=== PATIENT | female | born 1950 | race Hispanic/Latino ===

== ENCOUNTER 2025-01-02 08:38 | Day surgery (SDC) | payer MEDICARE ==
[2025-01-01 09:02] LABS: BASOPHILS # (AUTO) 0.03 K/uL (0.00-0.20); BASOPHILS % (AUTO) 0.8 % (0.0-5.0); EOSINOPHILS # (AUTO) 0.14 K/uL (0.00-0.70); EOSINOPHILS % (AUTO) 3.8 % (0.0-8.0); HEMATOCRIT 39.8 % (36-48); IMMATURE GRANULOCYTE ABSOLUTE 0.01 K/uL (0-1); LYMPHOCYTES # (AUTO) 1.1 K/uL (1.0-4.8); LYMPHOCYTES % (AUTO) 30.1 % (21.0-51.0); MEAN CORPUSCULAR HEMOGLOBIN 32.4 pg (27.0-33.0); MEAN CORPUSCULAR HGB CONC 36.2 g/dL (32.0-36.0); MEAN CORPUSCULAR VOLUME 89.4 fL (79-99); MONOCYTES # (AUTO) 0.2 K/uL (0.1-1.0); MONOCYTES % (AUTO) 5.8 % (3.0-13.0); NEUTROPHILS # (AUTO) 2.2 K/uL (1.8-7.7); NEUTROPHILS % (AUTO) 59.2 % (40.0-77.0); PLATELET COUNT (AUTO) 149 K/uL (130-400); RED BLOOD CELL COUNT(AUTO) 4.45 MIL/uL (4.00-5.50); RED CELL DISTRIBUTION WIDTH 12.7 % (11.0-15.5); WHITE BLOOD COUNT (AUTO) 3.7 K/uL (4.8-10.8)
[2025-01-01 09:09] LABS: CREATININE 0.7 mg/dL (0.5-1.0); POTASSIUM 3.8 mmol/L (3.5-5.1)
[2025-01-01 09:30] LABS: PROTHROMBIN TIME 10.6 SEC (9.6-11.6)
[2025-01-01 09:31] LABS: PARTIAL THROMBOPLASTIN TIME 27.2 SEC (26.3-35.5)
[2025-01-01 09:34] VITALS: BP 111/74; PULSE 56; RESP 16; TEMP 98.1
--- NOTE | 2025-01-01 12:04 | EKG ---
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
[2025-01-02] VITALS (18 sets, daily range): BP systolic 104–142; BP diastolic 65–81; PULSE 59–88; RESP 13–18; TEMP 97.3–97.4
[~2025-01-02 08:38] MED LIST: ALEN70TA80 PO
[2025-01-02] MEDS ORDERED: BETA1TAB18 PO (09:44)
[2025-01-02] MEDS: VANCOMYCIN 1G/250ML KIT 250 ML IV ONE (09:44)
[2025-01-02] MEDS ORDERED: Collagen (09:44)
[2025-01-02] MEDS ORDERED: MECO10005 PO (09:44)
[2025-01-02] MEDS ORDERED: tumeric PO (09:44)
[2025-01-02] MEDS ORDERED: METR45GE10 TP (09:44)
[2025-01-02] MEDS ORDERED: CALC-1209 PO (09:44)
[2025-01-02] MEDS ORDERED: proPOFol 10 MG/ML 20ML VIAL IV ONE (10:22)
[2025-01-02] MEDS ORDERED: rocuRONium bROMide 10MG/1ML 5ML VL ONE (10:22)
[2025-01-02] MEDS ORDERED: MIDAZOLAM HCL 1 MG/ML 2ML VIAL ONE (10:22)
[2025-01-02] MEDS ORDERED: FENTanyl CITRate PF 50 MCG/1 ML 2ML VIAL ONE (10:23)
[2025-01-02] MEDS: LACTATED RINGERS 1000ML 1,000 ML IV ONE (10:50)
[2025-01-02] MEDS: SCOPOLAMINE HYDROBROMIDE 1 EACH ADH..PATCH TD ONE (10:50)
[2025-01-02] MEDS ORDERED: GLYCOPYRROLATE 0.2 MG/ML 5 ML VIAL ONE (11:00)
[2025-01-02] MEDS: BUPIvacaine/PF 0.5% 30ML VIAL ONE (11:21)
[2025-01-02] MEDS ORDERED: ePHEDrine SULFate 50 MG/ML AMPULE ONE (11:31)
--- NOTE | 2025-01-02 11:37 | OP ---
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 Injectables: 6 cc of 0.5% Marcaine plain Specimen: None Materials: 2.2 mm cortical screw, 4-0 Vicryl, 4-0 nylon Hemostasis: Pneumatic ankle tourniquet at 220 mm Hg DESCRIPTION OF PROCEDURE: The patient was brought into the operative room placed on table in a supine position and general anesthesia was induced. Time-out was called with all the staff in the room to identify the patient, procedure and procedure site. Patient's right foot was prepped and draped in usual aseptic manner, exsanguinated utilizing Esmarch bandage and pneumonic ankle tourniquet was inflated at 220 mm Hg. The knees longitudinal incision was made from the MPJ to PIPJ of the right 2nd digit. Incision was deepened through the subcutaneous tissue layer care being taken to retract and protect all the vital neurovascular structures. Small bleeders were coagulated. Extensor tendon was released at the MPJ to release the contracture at the MPJ level. Also extensor tendon was transected at the PIPJ level to expose the PIPJ by releasing the capsular ligaments. Head of the proximal phalanx and the base of middle phalanx were then resected to expose cancellous bone for arthrodesis. 2.2 mm cortical screw was utilized to stabilize the PIPJ while PIPJ was reapproximated to the anatomical position after deformity was reduced. The placement of the screw and alignment of the corrected deformity were confirmed under fluoroscopy in multiple views. The surgical wound was irrigated aggressively utilizing copious amounts of norm al sterile saline with a pressure. Subcutaneous tissue layer was reapproximated utilizing 4-0 Vicryl and skin via 4-0 nylon. The surgical wound was dressed with dry sterile dressing followed by Jameson wrap and pneumonic ankle tourniquet was released. Revascularization of the tip of the toe was confirmed. Patient tolerated the procedure and anesthesia well. DELMA BAKER DPM Jan 02, 2025 11:37
--- NOTE | 2025-01-02 16:56 | HMCIMG ---
TOE(S) 2+VWS RT HISTORY: Hammertoe correction COMPARISON: None TECHNIQUE: Fluoroscopic images of the ovaries were obtained. FINDINGS: Please see procedure report her referring physician. IMPRESSION: 1. Findings as described above.
== END 2025-01-02 14:05 | disposition home or self-care (01) ==
LOC: DAH 08:38
PROVIDERS: ATTEND Podiatrist
DX: M20.41 Other hammer toe(s) (acquired), right foot (principal); M19.90 Unspecified osteoarthritis, unspecified site; E66.9 Obesity, unspecified; M81.0 Age-related osteoporosis without current pathological fracture; Z88.0 Allergy status to penicillin; Z79.01 Long term (current) use of anticoagulants; Z79.899 Other long term (current) drug therapy
CPT/HCPCS: 80048; 85025; 85610; 85730; 36415; 93005; 28285; 73660; A6260; C1713; A4663; J7120; J3010; J3490 ×3; J2250; J2704; J3370; J0665; A6445; A4649 ×2; A4930; A4215; A4222; A4221; A4216; A4223 ×2